=== PATIENT | female | born 1995 | race Caucasian/White ===

== ENCOUNTER 2022-10-05 09:28 | Emergency (ER) | payer BC ==
[~2022-10-05] VITALS: Ht 160 cm; Wt 92.1 kg
[~2022-10-05 09:28] MED LIST: IBUPROFEN800 MG PO; NORCO 5-325 TA1 EACH PO; PRILOSEC OTC20 MG PO
[2022-10-05] MEDS ORDERED: EFFEXOR XR37.5 MG PO (10:08)
[2022-10-05] MEDS ORDERED: ABILIFY10 MG PO (10:08)
--- NOTE | 2022-10-06 21:51 | EKG ---
[facility] [address] [facility] [place], [place] [address] Signed Sinus rhythm with short NM Otherwise normal ECG No previous ECGs available Confirmed by BARBY RIVAS MD [id number] on 10/06/2022 9:51:04 PM Electronically Signed By: BARBY RIVAS MD 10/06/222150 PATIENT NAME: KANCHAN HART RUDI Electrocardiogram DATE OF : [birth year] PHYSICIAN: BARBY RIVAS MD REPORT #: [id number] REPORT IS CONFIDENTIAL AND NOT TO BE RELEASED WITHOUT AUTHORIZATION
== END 2022-10-05 14:44 | disposition home or self-care (01) ==
LOC: ED 09:28
DX: B34.9 Viral infection, unspecified (principal); R10.9 Unspecified abdominal pain; E86.0 Dehydration; Z20.822 Contact with and (suspected) exposure to COVID-19; Z79.899 Other long term (current) drug therapy
CPT/HCPCS: 36415; 71045; 76705; 80053; 81001; 83690; 84703; 85025; 87502; 93005; 93010; 96374; 96375; 99284-25; C9803; J1885; J2405; J7030; U0003